=== PATIENT | female | born 1980 | race Caucasian/White ===

== ENCOUNTER 2017-09-06 23:45 | Emergency (ER) | payer MEDICAID ==
[~2017-09-06] VITALS: Ht 162.6 cm; Wt 77.1 kg
--- NOTE | 2017-09-07 00:25 | NUR ---
Dr. Ricks at bedside for MSE.
[2017-09-07] MEDS ORDERED: IBUPROFEN 600 MG TABLET PO ONE (00:30)
[2017-09-07] MEDS ORDERED: IBUPROFEN 600 MG TABLET ONE (00:42)
--- NOTE | 2017-09-07 03:07 | NUR ---
Patient discharged to home in stable conditon. Written and verbal after care instructions given. Patient verbalizes understanding of instructions. Pt ambulated out of ER with steady gait, no acute signs of distress, VSS, all belongings taken.
[2017-09-07 03:08] VITALS: BP 119/89
== END 2017-09-07 03:05 | disposition home or self-care (01) ==
LOC: ER 23:50
DX: S52.572A Other intraarticular fracture of lower end of left radius, initial encounter for closed fracture (principal); S29.9XXA Unspecified injury of thorax, initial encounter; S59.901A Unspecified injury of right elbow, initial encounter; W05.1XXA Fall from non-moving nonmotorized scooter, initial encounter; Y93.89 Activity, other specified; Y92.89 Other specified places as the place of occurrence of the external cause; Y99.8 Other external cause status
CPT/HCPCS: 29105; 71101; 73080; 73090; 99284; A4663